=== PATIENT | male | born 1955 | race Caucasian/White ===

== ENCOUNTER → 2024-09-21 10:28 | Outpatient (REF) | payer BC, SELFPAY | LOC: RAD 10:28 | PROVIDERS: ATTENDING PHYSICIAN Family Medicine | DX: M25.511 Pain in right shoulder (principal) | CPT/HCPCS: 73030 ==

== ENCOUNTER → 2024-10-10 07:30 | Outpatient (REF) | payer BC, SELFPAY | LOC: PAVMRI 07:30 | PROVIDERS: ATTENDING PHYSICIAN Orthopaedic Surgery Sports Medicine | DX: M25.511 Pain in right shoulder (principal) | CPT/HCPCS: 73221 ==